=== PATIENT | female | born 1950 | race Caucasian/White ===

== ENCOUNTER 2018-06-23 07:57 | Inpatient (IN) ==
[2018-06-23] MEDS ORDERED: Metoprolol Tartrate 25 MG Tablet PO ONE (08:29)
[2018-06-23] MEDS ORDERED: Chlorhexidine Gluconate 2% 1 Pack (2 Cloths) TOPICAL ONE (08:29)
[2018-06-23] MEDS ORDERED: Sodium Chlor 0.9% Inj 500 ML IV.SIG ONE (09:00)
--- NOTE | 2018-06-23 10:52 | P.HPVS ---
History of Present Illness Chief Complaint: L LE pain, PAD, occluded iliac stents History of Present Illness: 68 yo female with iliac stents placed at OSH now with L ones occluded. Has L thigh pain with ambulation. Presents for fem-fem bypass. no interval change in her health that would preclude OR. - Inpatient Certification If this patient has been admitted as an Inpatient: I certify that the inpatient services were ordered in accordance with Medicare regulations governing the order. This includes certification that hospital inpatient services are reasonable and necessary and in the case of services not specified as inpatient-only under 42 CFR 419.22(n), that they are appropriately provided as inpatient services in accordance to with the 2-midnight benchmark under 43 CFR 412.3(e) Estimated Total Length of Stay (Days): 3 Plans for Post Hospital Care: Home Review of Systems All other systems reviewed negative except as stated in HPI PMFSH - History History Provided By: Patient - Medical History Medical History: Medical History (Last Reviewed 06/23/18 @ 10:50 by Ranjit Penaloza MD) Anxiety COPD (chronic obstructive pulmonary disease) GERD (gastroesophageal reflux disease) Hypertension Murmur PAD (peripheral artery disease) PVD (peripheral vascular disease) Recently quit using tobacco - Surgical History Surgical History: Surgical History (Last Reviewed 06/23/18 @ 10:50 by Ranjit Penaloza MD) History of angioplasty of peripheral vessel History of bilateral oophorectomies History of carpal tunnel surgery of right wrist History of coronary artery stent placement History of partial hysterectomy Hx of appendectomy Hx of tonsillectomy - Tobacco History Second Hand Smoke Exposure: No Tobacco Use In Past 30 Days: No Smoking Status: Former smoker Tobacco Type: Cigarettes - Alcohol History How Often Do You Have a Drink Containing Alcohol: Never - Substance Use History Substance History: No History of Abuse Medications and Allergies Active Medications: Active Medications Lactated Ringer's (Lr 1000 Ml Inj) 1,000 mls @ 30 mls/hr IV.SIG .Q24H YAZ Stop: 06/24/18 08:29 Sodium Chloride (Ns Inj) 500 mls @ 30 mls/hr IV.SIG .Q10H ONE Stop: 06/24/18 01:39 Allergies Allergy/AdvReac Type Severity Reaction Status Date / Time No Known Allergies Allergy Verified 06/23/18 08:46 Home Medications Medication Instructions Recorded Confirmed Type alprazolam 0.25 mg PO TID 06/20/18 06/23/18 History aspirin [Aspirin Low Dose] 81 mg PO DAILY 06/20/18 06/23/18 History esomeprazole magnesium [Nexium] 20 mg PO BID 06/20/18 06/23/18 History fluticasone-vilanterol [Breo 1 inh INHALATION DAILY 06/20/18 06/23/18 History Ellipta] ipratropium-albuterol 3 ml INHALATION Q6-8H PRN 06/20/18 06/23/18 History lisinopril 20 mg PO BID 06/20/18 06/23/18 History prasugrel [Effient] 10 mg PO HS 06/20/18 06/23/18 History rosuvastatin [Crestor] 40 mg PO HS 06/20/18 06/23/18 History trazodone 100 mg PO HS 06/20/18 06/23/18 History varenicline [Chantix] 1 mg PO BID 06/20/18 06/23/18 History Physical Exam Vital Signs / I&O: Vital Signs 06/23/18 08:34 06/23/18 09:48 Temperature 98.3 F Pulse Rate 83 83 Respiratory Rate 16 17 Blood Pressure 151/75 H Pulse Oximetry 95 Intake & Output 06/22/18 06/23/18 06/23/18 18:59 06:59 18:59 Weight 69.5 kg Other: Weight On Admission 69.5 kg Neuro: alert, no distress HEENT: NC/AT Neck: no JVD Heart: reg rate Lungs: clear, occ wheeze Vascular: nonpalpable L femoral pulse Laboratory Results - last 24 hr 06/23/18 08:30 Blood Type A Negative Blood Type Recheck Required Caprini VTE Risk Assessment Caprini VTE Risk Assessment: No/Low Risk (score <= 1) (intraop heparin) Caprini Risk Assessment Model: Point Value = 1 Point Value = 2 Point Value = 3 Point Value = 5 Age 41-60 Minor surgery BMI > 25 kg/m2 Swollen legs Varicose veins or History of unexplained or recurrent spontaneous Oral contraceptives or hormone replacement Sepsis (< 1 month) Serious lung disease, including pneumonia (< 1 month) Abnormal pulmonary function Acute myocardial infarction Congestive heart failure (< 1 month) History of inflammatory bowel disease Medical patient at bed rest Age 61-74 Arthroscopic surgery Major open surgery (> 45 min) Laparoscopic surgery (> 45 min) Malignancy Confined to bed (> 72 hours) Immobilizing plaster cast Central venous access Age >= 75 History of VTE Family history of VTE Factor V Leiden Prothrombin [id number] Lupus anticoagulant Anticardiolipin antibodies Elevated serum homocysteine Heparin-induced thrombocytopenia Other congenital or acquired thrombophilia Stroke (< 1 month) Elective arthroplasty Hip, pelvis, or leg fracture Acute spinal cord injury (< 1 month) Prophylaxis Regimen: Total Risk Factor Score Risk Level Prophylaxis Regimen 0-1 Low Early ambulation 2 Moderate Order ONE of the following: *Sequential Compression Device (SCD) *Heparin 5000 units SQ BID 3-4 Higher Order ONE of the following medications: *Heparin 5000 units SQ TID *Enoxaparin/Lovenox 40 mg SQ daily (WT < 150 kg, CrCl > 30 mL/min) *Enoxaparin/Lovenox 30 mg SQ daily (WT < 150 kg, CrCl > 10-29 mL/min) *Enoxaparin/Lovenox 30 mg SQ BID (WT < 150 kg, CrCl > 30 mL/min) AND/OR *Sequential Compression Device (SCD) 5 or more Highest Order ONE of the following medications: *Heparin 5000 units SQ TID (Preferred with Epidurals) *Enoxaparin/Lovenox 40 mg SQ daily (WT < 150 kg, CrCl > 30 mL/min) *Enoxaparin/Lovenox 30 mg SQ daily (WT < 150 kg, CrCl > 10-29 mL/min) *Enoxaparin/Lovenox 30 mg SQ BID (WT < 150 kg, CrCl > 30 mL/min) AND *Sequential Compression Device (SCD) Assessment and Plan - Assessment (1) PAD (peripheral artery disease) Code(s): I73.9 - Peripheral vascular disease, unspecified Status: Acute - Plan R to L fem-fem bypass Family: [phone]
[2018-06-23] MEDS ORDERED: ceFAZolin 1 GM Premix Inj 1 GM/50 ML PIGGYBACK IV.SIG ONE ×2 (10:57→11:01)
[2018-06-23] MEDS ORDERED: Heparin 10,000 UNITS/10 ML Vial (for IV use) ONE (10:57)
[2018-06-23] MEDS ORDERED: Bupivacaine PF 0.5% Inj 10 ML Vial ONE (10:57)
[2018-06-23] MEDS ORDERED: Thrombin Topical 20,000 UNIT Spray Kit TOPICAL ONE (10:58)
[2018-06-23] MEDS ORDERED: Heparin/NS PF Inj 500 ML ONE (10:58)
[2018-06-23] MEDS ORDERED: Protamine Sulfate Inj 50 MG/5 ML Vial ONE ×2 (11:02→13:11)
[2018-06-23] MEDS ORDERED: Bisacodyl 10 MG Supp RECTAL PRN (13:44)
--- NOTE | 2018-06-23 13:44 | P.OP ---
- Preoperative Diagnosis (1) PAD (peripheral artery disease) - Postoperative Diagnosis (1) PAD (peripheral artery disease) Date of procedure: 06/23/18 Procedure: RIGHT to LEFT fem-fem with 8mm PTFE Implants: 8mm PTFE Anesthesia: GETA Surgeon: Ranjit Penaloza MD [employer] Instructor: Ranjit Swan Estimated blood loss (mL): 75 IV fluids (mL): 1,700 Urine output (mL): 325 Operation and Findings: small arteries, improved perfusion to LEFT foot after fem-fem
[2018-06-23] MEDS ORDERED: *morphine SULFATE 4 MG/ML PERIprocedure ONLY ONE ×3 (14:03→14:32)
[2018-06-23] MEDS ORDERED: fentaNYL Citrate Inj 100 MCG/2 ML Ampul ONE (14:10)
[2018-06-23] MEDS ORDERED: *Meperidine Inj 25 MG/ML Vial PERIprocedural Use ONLY ONE (14:16)
[2018-06-23] MEDS ORDERED: HYDROmorphone PF Inj 1 MG/ML Ampul ONE (14:50)
--- NOTE | 2018-06-23 16:07 | MP ---
cc: Ranjit Penaloza MD DATE OF OPERATION: 06/23/2018 PREOPERATIVE DIAGNOSES: Left lower extremity iliac occlusion, peripheral vascular disease. POSTOPERATIVE DIAGNOSES: Left lower extremity iliac occlusion, peripheral vascular disease. PROCEDURE PERFORMED: Right to left femoral-femoral bypass with 8 mm PTFE. ATTENDING SURGEON: Ranjit Penaloza MD FILTER TENDER JELLY SURGEON: Ranjit Swan. ANESTHESIA: General. INDICATIONS: Ms. Whiteside is a 68-year-old lady with left lower extremity pain and occluded iliac stents placed elsewhere. She was taken to the operating room for an extra-anatomic bypass with fem-fem orientation. Intraoperatively, she was found to have small arteries, but these had nice lumen. DESCRIPTION OF PROCEDURE: Informed consent was obtained from the patient. She was taken to the operating room and placed supine on the operating table. Appropriate timeout was taken to ensure the patient's identity, operative site, and planned procedure. The administration of 2 g of Ancef was initiated prior to skin incision, will be discontinued after single preoperative dose. Everyone in the room agreed, and we proceeded. She was prepped from nipples to her toes. An oblique incision was made in the patient's both groins, carried down through subcutaneous tissue with electrocautery. The common femoral artery was identified from the external iliac artery down to the bifurcation. A tunnel was then created in the subfascial plane by incising the inguinal ligament and passing an aortic clamp through the tunnel, and an 8 mm PTFE was passed through the tunnel, taking caution not to twist it. The patient was systemically heparinized with 7000 units of IV heparin. Proximal and distal control of the right common femoral artery were obtained with profunda clamps, and a longitudinal arteriotomy was made with an 11-blade, extended with Harish scissors. The PTFE was spatulated and sewn end-to-side with a running 5-0 Prolene suture. At the completion, it was flushed and noted to be hemostatic. A Cintia soft gel was placed on the graft. The proximal and distal control of the left common femoral artery was obtained with profunda clamps and a longitudinal arteriotomy was made with an 11 blade, extended with Harish scissors. The graft was cut to an appropriate length, spatulated, and sewn end-to-side with running 5-0 Prolene suture. At completion, it was flushed and noted to be hemostatic. There was an excellent Doppler signal in the left SFA and profunda and an excellent signal in both feet. The heparin was reversed with protamine. The wounds were infiltrated with Marcaine, irrigated, and closed with 2-0 Polysorb in 2 layers, 3-0 Polysorb, and 4-0 Monocryl. The sponge and needle counts were correct at the end of the case. I was present, scrubbed, and performed the entire procedure. Ranjit Penaloza MD RJF/rm/ll , 02:46 PM , 02:51 PM MTDDolores
[2018-06-23] MEDS: Morphine Inj 4 MG/ML Vial IV.PUSH PRN (19:12)
[2018-06-23] MEDS: traZODone 100 MG Tablet PO SCH (20:26)
[2018-06-23] MEDS: Pantoprazole Sodium 20 MG DR Tablet PO SCH (20:27)
[2018-06-23] MEDS: Senna/Docusate Sodium 8.6/50 MG Tablet PO SCH (20:27)
[2018-06-23] MEDS: Lisinopril 20 MG Tablet PO SCH (20:27)
[2018-06-23] MEDS: ALPRAZolam 0.25 MG Tablet PO SCH (20:27)
[2018-06-23] MEDS: Varenicline 1 MG Tablet PO SCH (20:32)
[2018-06-24] MEDS: Morphine Inj 4 MG/ML Vial IV.PUSH PRN ×4 (05:00→15:33)
[2018-06-24 06:09] LABS: Hematocrit 34.6 % (35.0-46.0); Hemoglobin 11.4 gm/dL (11.6-15.3); Mean Corpuscular HGB Conc 32.9 % (32.0-36.0); Mean Corpuscular Hemoglobin 30.3 pg (27.0-34.0); Mean Corpuscular Volume 92.1 fL (80.0-100.0); Mean Platelet Volume 8.8 fL (7.0-11.0); Platelet Count 207 th/mm3 (150-450); Red Blood Count 3.75 mil/mm3 (4.00-5.30); Red Cell Distribution Width 14.3 % (11.6-17.2); White Blood Count 11.2 th/mm3 (4.0-11.0)
[2018-06-24 06:38] LABS: Calcium 8.1 mg/dL (8.5-10.1); Carbon Dioxide 27.1 meq/L (21.0-32.0); Potassium 4.1 meq/L (3.5-5.1)
--- NOTE | 2018-06-24 07:48 | P.PNVS ---
Subjective Post Op Day #: 1 Procedure: R to L fem-fem bypass Subjective/Hospital Course: c/o groin pain but otherwise ok. OOB TC and Hall just came out. Rodger po. feet ok Objective Vital Signs / I&O: Vital Signs 06/23/18 08:34 06/23/18 09:48 06/23/18 13:55 Temperature 98.3 F 97.4 F L Pulse Rate 83 83 91 H Respiratory Rate 16 17 20 Blood Pressure 151/75 H 154/68 H Pulse Oximetry 95 93 L 06/23/18 14:10 06/23/18 14:25 06/23/18 14:42 Temperature Pulse Rate 88 82 76 Respiratory Rate 20 16 20 Blood Pressure 149/68 H 118/57 L 104/54 L Pulse Oximetry 95 95 93 L 06/23/18 14:59 06/23/18 15:15 06/23/18 15:34 Temperature 98.0 F Pulse Rate 74 75 72 Respiratory Rate 20 22 18 Blood Pressure 100/51 L 114/49 L 106/55 L Pulse Oximetry 94 L 96 96 06/23/18 16:00 06/23/18 17:00 06/23/18 18:00 Temperature 98.0 F Pulse Rate 80 84 84 Respiratory Rate 18 Blood Pressure 127/59 L Pulse Oximetry 95 06/23/18 19:00 06/23/18 20:00 06/23/18 21:00 Temperature 98.5 F Pulse Rate 83 81 81 Respiratory Rate 16 Blood Pressure 125/74 Pulse Oximetry 95 06/23/18 22:00 06/23/18 22:23 06/23/18 23:00 Temperature 98.6 F Pulse Rate 78 80 Respiratory Rate 16 Blood Pressure 117/56 L Pulse Oximetry 95 98 06/24/18 00:00 06/24/18 01:00 06/24/18 02:00 Temperature Pulse Rate 71 71 67 Respiratory Rate Blood Pressure Pulse Oximetry 06/24/18 03:00 06/24/18 04:00 06/24/18 05:00 Temperature 98.2 F Pulse Rate 67 71 75 Respiratory Rate 16 Blood Pressure 98/54 L Pulse Oximetry 98 06/24/18 06:00 Temperature Pulse Rate 79 Respiratory Rate Blood Pressure Pulse Oximetry Intake & Output 06/23/18 06/24/18 06/24/18 18:59 06:59 18:59 Intake Total 3000 / 3000 960 / 960 Output Total 800 / 800 1000 / 1000 Balance 2200 / 2200 -40 / -40 Weight 69.5 kg 70.5 kg Intake: IV 600 / 600 Heparin/NS PF Inj 500 ML @ 0 500 / 500 mls/hr .ROUTE .STK-MED ONE Rx#: [id number] Ancef 1 GM Premix Inj 1 gm In 100 / 100 50 ml @ 0 mls/hr IV.SIG .STK- MED ONE Rx#:[id number] Oral 700 / 700 960 / 960 Anesthesia Amount 1700 / 1700 Output: Estimated Blood Loss 75 / 75 Urine Amount (Catheter) 725 / 725 1000 / 1000 Indwelling Urethral Catheter 725 / 725 1000 / 1000 Other: # Incontinent Bowel Movements 0 Weight On Admission 69.5 kg Exam: B groin prevena in place groins soft palpable R DP and L PT Laboratory Results - last 24 hr 06/23/18 06/24/18 06/24/18 08:30 05:02 05:02 WBC 11.2 H RBC 3.75 L Hgb 11.4 L Hct 34.6 L MCV 92.1 MCH 30.3 MCHC 32.9 RDW 14.3 Plt Count 207 MPV 8.8 Sodium 139 Potassium 4.1 Chloride 105 Carbon Dioxide 27.1 Anion Gap 7 BUN 15 Creatinine 0.92 Estimated GFR 61 L Random Glucose 107 H Calcium 8.1 L Blood Type A Negative Blood Type Recheck Required Antibody Screen Negative Assessment and Plan - Assessment (1) PAD (peripheral artery disease) Code(s): I73.9 - Peripheral vascular disease, unspecified Status: Acute - Plan POD#1 s/p fem-fem bypass, palpable pulses 1. check to see if voids by 1300 2. OOB/PT 3. Reg diet and meds; will start Effient tomorrow Discharge Planning: likely 1-2 days pending mobility
[2018-06-24] MEDS: Pantoprazole Sodium 20 MG DR Tablet PO SCH ×2 (09:45→21:04)
[2018-06-24] MEDS: Varenicline 1 MG Tablet PO SCH ×2 (09:45→21:04)
[2018-06-24] MEDS: Lisinopril 20 MG Tablet PO SCH ×2 (09:45→21:04)
[2018-06-24] MEDS: Senna/Docusate Sodium 8.6/50 MG Tablet PO SCH ×2 (09:45→21:03)
[2018-06-24] MEDS: ALPRAZolam 0.25 MG Tablet PO SCH ×3 (09:45→19:03)
[2018-06-24] MEDS: Enoxaparin Inj 40 MG/0.4 ML Syringe SQ SCH (13:06)
[2018-06-24] MEDS: traZODone 100 MG Tablet PO SCH (21:03)
[2018-06-25] MEDS: Morphine Inj 4 MG/ML Vial IV.PUSH PRN ×2 (05:48→08:05)
[2018-06-25] MEDS: Varenicline 1 MG Tablet PO SCH ×2 (08:05→22:26)
[2018-06-25] MEDS: ALPRAZolam 0.25 MG Tablet PO SCH ×3 (08:05→17:35)
[2018-06-25] MEDS: Senna/Docusate Sodium 8.6/50 MG Tablet PO SCH ×2 (08:05→22:25)
[2018-06-25] MEDS: Lisinopril 20 MG Tablet PO SCH (08:05)
[2018-06-25] MEDS: Pantoprazole Sodium 20 MG DR Tablet PO SCH ×2 (08:05→22:26)
--- NOTE | 2018-06-25 08:09 | P.PNVS ---
Subjective Post Op Day #: 2 Procedure: R to L fem-fem bypass Subjective/Hospital Course: c/o groin pain ambulated yest voiding on her own feet ok Objective Vital Signs / I&O: Vital Signs 06/24/18 11:00 06/24/18 12:00 06/24/18 12:36 Temperature 97.4 F L Pulse Rate 83 76 Respiratory Rate 18 16 Blood Pressure 134/73 Pulse Oximetry 92 L 06/24/18 13:00 06/24/18 14:00 06/24/18 14:47 Temperature Pulse Rate 82 84 Respiratory Rate 16 Blood Pressure Pulse Oximetry 06/24/18 15:00 06/24/18 16:00 06/24/18 17:00 Temperature 98.4 F Pulse Rate 80 85 82 Respiratory Rate 14 Blood Pressure 100/51 L Pulse Oximetry 91 L 06/24/18 17:55 06/24/18 19:00 06/24/18 20:00 Temperature 98.9 F Pulse Rate 84 86 80 Respiratory Rate 18 Blood Pressure 128/57 L Pulse Oximetry 94 L 06/24/18 21:00 06/24/18 22:00 06/24/18 23:00 Temperature 100.2 F H Pulse Rate 78 80 81 Respiratory Rate 18 Blood Pressure 103/51 L Pulse Oximetry 92 L 06/25/18 00:00 06/25/18 01:00 06/25/18 02:00 Temperature Pulse Rate 76 79 77 Respiratory Rate Blood Pressure Pulse Oximetry 06/25/18 03:00 06/25/18 04:00 06/25/18 05:00 Temperature 99.6 F Pulse Rate 82 79 80 Respiratory Rate 18 Blood Pressure 98/53 L Pulse Oximetry 93 L 06/25/18 06:00 06/25/18 07:00 Temperature Pulse Rate 82 83 Respiratory Rate Blood Pressure Pulse Oximetry Intake & Output 06/24/18 06/25/18 06/25/18 18:59 06:59 18:59 Intake Total 480 / 480 240 / 240 Output Total 750 / 750 200 / 200 Balance -270 / -270 40 / 40 Weight 71 kg Intake: Oral 480 / 480 240 / 240 Output: Urine 750 / 750 200 / 200 Exam: sitting in chair, mild distress due to pain feet warm palp pulses Incisions: Prevena in place, minimal groin edema Assessment and Plan - Assessment (1) PAD (peripheral artery disease) Code(s): I73.9 - Peripheral vascular disease, unspecified Status: Acute - Plan POD#2 s/p fem-fem bypass, palpable pulses 1. reg diet and meds including antiplatelet 2. OOB/PT 3. D/C when more mobile Discharge Planning: likely 1-2 days pending mobility
[2018-06-25] MEDS: Enoxaparin Inj 40 MG/0.4 ML Syringe SQ SCH (12:44)
[2018-06-25] MEDS: oxyCODONE/Acetaminophen 10/325 Tablet PO PRN ×2 (16:20→22:24)
[2018-06-25] MEDS: traZODone 100 MG Tablet PO SCH (22:26)
[2018-06-26] MEDS: Lisinopril 20 MG Tablet PO SCH ×2 (04:19→08:39)
[2018-06-26] MEDS: oxyCODONE/Acetaminophen 10/325 Tablet PO PRN ×2 (04:40→08:36)
[2018-06-26 06:45] VITALS: RESP 18
[2018-06-26] MEDS: Varenicline 1 MG Tablet PO SCH (08:37)
[2018-06-26] MEDS: Pantoprazole Sodium 20 MG DR Tablet PO SCH (08:38)
[2018-06-26] MEDS: ALPRAZolam 0.25 MG Tablet PO SCH ×2 (08:39→13:17)
[2018-06-26] MEDS: Senna/Docusate Sodium 8.6/50 MG Tablet PO SCH (08:39)
--- NOTE | 2018-06-26 09:52 | P.PNVS ---
Subjective Post Op Day #: 3 Procedure: R to L fem-fem bypass Subjective/Hospital Course: Pt sitting in bed applying make up appearing in good spirits Pt reported she has been ambulating Pt c/o mild bilateral groin pain Pt reported improved L LE discomfort Objective Vital Signs / I&O: Vital Signs 06/25/18 10:00 06/25/18 10:01 06/25/18 11:00 Temperature 98.2 F Pulse Rate 77 86 Respiratory Rate 18 18 22 Blood Pressure 123/59 L Pulse Oximetry 92 L 06/25/18 12:00 06/25/18 13:00 06/25/18 14:00 Temperature Pulse Rate 83 90 80 Respiratory Rate Blood Pressure Pulse Oximetry 06/25/18 15:00 06/25/18 16:00 06/25/18 17:00 Temperature 98 F Pulse Rate 83 81 88 Respiratory Rate 22 Blood Pressure 113/60 Pulse Oximetry 96 06/25/18 18:00 06/25/18 19:00 06/25/18 20:00 Temperature 98.7 F Pulse Rate 81 84 76 Respiratory Rate 16 Blood Pressure 111/56 L Pulse Oximetry 94 L 06/25/18 21:00 06/25/18 22:00 06/25/18 22:23 Temperature Pulse Rate 76 78 81 Respiratory Rate 16 Blood Pressure Pulse Oximetry 06/25/18 22:55 06/25/18 23:00 06/26/18 00:00 Temperature 98.7 F Pulse Rate 82 84 Respiratory Rate 16 18 Blood Pressure 102/54 L Pulse Oximetry 90 L 06/26/18 01:00 06/26/18 02:00 06/26/18 03:00 Temperature 98.6 F Pulse Rate 86 88 88 Respiratory Rate 18 Blood Pressure 95/71 L Pulse Oximetry 92 L 06/26/18 04:00 06/26/18 05:00 06/26/18 06:00 Temperature Pulse Rate 94 H 90 90 Respiratory Rate Blood Pressure Pulse Oximetry 06/26/18 07:00 Temperature Pulse Rate 72 Respiratory Rate Blood Pressure Pulse Oximetry Intake & Output 06/25/18 06/26/18 06/26/18 18:59 06:59 18:59 Intake Total 480 / 480 240 / 240 Output Total 700 / 700 330 / 330 Balance -220 / -220 -90 / -90 Weight 70.5 kg Intake: Oral 480 / 480 240 / 240 Output: Urine 700 / 700 330 / 330 Other: # Bowel Movements 0 Exam: Bilateral Groin wound vacs intact w/o Swelling or Hematoma B LE warm/motor intact/ palpable 1+ Dorsalis Pedis pulses Assessment and Plan - Assessment (1) PAD (peripheral artery disease) Code(s): I73.9 - Peripheral vascular disease, unspecified Status: Acute - Plan 68/F with a PMH of L LE pain, PAD, occluded iliac stents Pt s/p fem-fem bypass, palpable pulses POD 3 doing well w/ improved ambulation and discomfort Pt w/o claudication or rest pain Plan Pt clear for D/C today w/ bilateral groin prevena wound vacs Will remove wound vacs in our out pt clinic Walker ordered Will arrange out pt f/u Shirley Singh NP [facility]/[place] [phone] Discharge Planning: Today
--- NOTE | 2018-06-26 10:27 | P.DS ---
Discharge Summary - Admission Date 06/23/18 07:57 - Admission Diagnosis (1) PAD (peripheral artery disease) - Discharge Date 06/26/18 - Discharge Diagnosis (1) PAD (peripheral artery disease) Status: Acute - Summary Brief History from admission: 68 yo female with iliac stents placed at OSH now with L ones occluded. Has L thigh pain with ambulation. Presents for fem-fem bypass. no interval change in her health that would preclude OR. Procedure: R to L fem-fem bypass Significant Findings: Bilateral Groin wound vacs intact w/o Swelling or Hematoma B LE warm/motor intact/ palpable 1+ Dorsalis Pedis pulses Hospital Course: 68/F female w/ a hx of L LE pain PAD and occluded iliac stents Pt takes a daily statin/anticoagulation/ does not smoke Pt presents for a femoral to femoral bypass for revascularization Pt s/p RIGHT to LEFT fem-fem with 8mm PTFE Pt doing well post operatively w/ expected complaints of B groin incisional discomfort Pain controlled and reports improved ambulation Pt clear for d/c (POD 3) w/ B groin wound vacs Wound vacs to be removed in our out pt clinic Walker ordered E- [place] reviewed- Rx out pt post Surgical pain medication of 3D - Discharge Instructions Any questions or concerns: Call [facility] [phone] Discharge Plan - Discharge Disposition Patient Disposition: Discharge Home - Discharge Condition Condition: Good - Discharge Order Discharge Orders: Discharge Order (Routine); Ordered 06/26/18 Ordered By: Shirley Singh - Physicians Team Primary Care Provider: Primary Care Barrera,Lauren Attending Provider: Ranjit Penaloza Other Providers: Lady Narayanan - Rxs /Orders / Referrals /Forms Prescriptions: New oxycodone-acetaminophen [Percocet] 10-325 mg Tablet 1 tab PO Q4H PRN (Reason: pain) Qty: 20 RF: 0 Continue alprazolam 0.25 mg Tablet 0.25 mg PO TID aspirin [Aspirin Low Dose] 81 mg Tablet,Delayed Release (Dr/Ec) 81 mg PO DAILY esomeprazole magnesium [Nexium] 20 mg Capsule,Delayed Release(Dr/Ec) 20 mg PO BID fluticasone-vilanterol [Breo Ellipta] 100-25 mcg/dose Blister With Device 1 inh INHALATION DAILY ipratropium-albuterol 0.5 mg-3 mg(2.5 mg base)/3 mL Solution For Nebulization 3 ml INHALATION Q6-8H PRN (Reason: copd) lisinopril 20 mg Tablet 20 mg PO BID prasugrel [Effient] 10 mg Tablet 10 mg PO HS rosuvastatin [Crestor] 40 mg Tablet 40 mg PO HS trazodone 100 mg Tablet 100 mg PO HS varenicline [Chantix] 1 mg Tablet 1 mg PO BID Referrals: Primary Care Lauren Rust [Primary Care Provider] - See Instructions Ranjit Penaloza MD [Physician] - See Instructions (Follow up in our out pt clinic on 07/01/18 at 11:30 for your wound vac removal) - Discharge Instructions Patient Printed Instructions: Peripheral Vascular Disease (GEN) - Post Discharge Care Plan Care Plan Goals: Discharge Care Plan Goals After Vascular Surgery Contact: Please call [phone] if you have any problems or have questions regarding your hospitalization. Directions to Meet Your Goals: 1. Diet: * You may resume a regular diet as you were eating at home before your admission. 2. Activity: * Increase your activity level gradually. * Keep surgical extremities elevated when at rest. This will help limit the swelling, bruising and discomfort normally present after surgery. * Walking is a good form of light exercise. Go for a walk at least 3 times per day. * No heavy lifting (lifting over 10 pounds) for at least 4 weeks from surgery. * Check with your surgeon to ensure when you are cleared for heavy lifting and full-intensity exercising. * Your strength will gradually improve. * No driving or operating motorized vehicles while on prescription pain medications. * No swimming until wounds fully healed. * Return to work when cleared by MD/PA/DRILL DOCTOR. 3. Bathing: Shower daily. * Gently let soap and water run over your incision and pat dry. Do not scrub the incision/wound. * Don't soak in a bath or submerge your incision in water until your incision is healed and evaluated by your physician at follow-up (usually two weeks). 4. Wound Care: INCISION SITE CARE INSTRUCTIONS: * You may leave your incision open to air. * Keep your incision clean and dry, unless showering. See above. * Moisture near the incision will cause the wound to open. * No lotions, creams, ointments, or powders on incisions until they are well- healed. * If you have glue over the incision(s), allow it to fall off naturally in 1-3 weeks * If present, pernell/sutures will be removed 2-3 weeks after surgery during your follow-up clinic visit. * If present, change dressing/bandage when soaked/soiled as needed. * Observe wound daily, checking for signs and symptoms of infection including: foul odor, drainage from the incision, increased redness, increased pain at incision, or increased swelling. 5. Pain Control: Expect post-operative pain for 1-4 weeks after surgery. Your pain will improve gradually. * You may have been provided with a prescription for pain medication. Please take as directed, and be aware of side effects such as drowsiness, constipation and mild stomach discomfort. Pain pills on an empty stomach can cause nausea , so eat a small amount of food, such as crackers, when taking these pills. * Take [id number]-[id number] stool softeners (Colace or Senna) with your prescribed pain medication. * Acetaminophen (500mg every 6 hours) or Ibuprofen (400mg every 6 hours) may be used in conjunction with narcotics to relieve pain. DO NOT take more than 4 grams (4000mg) of Tylenol in one day, as this can harm your liver. DO NOT take ibuprofen IF: you have an allergy to non-steroidal anti-inflammatory medications, you are taking Coumadin, you have been told you have kidney problems, or you have a history of gastrointestinal bleeding or ulcers. DO NOT take more than 3.2 grams (3200mg) of ibuprofen in one day. * You may also find relief from using heat packs or pads or ice packs. 6. Bowel Regimen for Constipation: * People who undergo surgery are likely to develop post-operative constipation. Exposure to narcotics and changes in diet, fluid intake, and physical activity are known contributors to constipation. We recommend routine stool softeners and/ or laxatives after surgery for most patients. Start by taking one medication. You can increase as directed to relieve constipation. Stop taking these medications if you develop diarrhea. These medications are available over-the- counter and do not require a prescription: * Colace is a stool softener. We recommend starting at 100mg orally twice per day as needed for soft stools and increase to a maximum of 200mg twice daily as needed. * Senna is a laxative that works by keeping water in the intestine to help stool move along the intestinal tract. Take 1 tablet daily as needed for soft stool and increase to a maximum of 2 tablets twice daily as needed. Take Senna with two full glasses of water each time. * Miralax, Dulcolax and Milk of Magnesia are other yjug-cdv-ypyplar laxatives that may be used as needed for post-operative constipation. * Drink 6-8 glasses of water per day. * Consume 15-30g of fiber per day: * Metamucil powder, 1-2 tablespoons 1-2 times/day OR Benefiber powder, 2 tablespoons 4 times/day. * Avoid straining. 7. Follow-Up: Do Not miss your follow-up appointment. Keep up with all your appointments and yearly check ups If you have any of the following symptoms please call [phone] immediately: Excessive swelling of the affected extremity Sudden onset of severe or unusual pain in the affected extremity Pain that gets worse or is not relieved by medication Warmth, redness, or swelling in the skin around the wound Foul drainage from incision Extensive bruising or discoloration Wound that opens up or pulls apart Fever above 101.5F or shaking chills Nausea or vomiting Severe diarrhea or severe constipation Dizziness or fainting Chest pain, shortness of breath, or increased work of breathing Weight gain >10 lbs over 3-4 days Inability to urinate for more than 6 hours Cloudy or foul smelling urine Urge to urinate more often than usual Symptoms to Report to Your Doctor: Temperature 101F or higher Pain uncontrolled by medication Drainage or foul odor from incision Extensive bruising or discoloration Chest pain Shortness of breath Nausea, vomiting or dizziness Call 911: Call 911 right away if you have: Sudden onset of chest pain that is not relieved by medications Shortness of breath
[2018-06-26 13:10] VITALS: BP 104/62; PULSE 74; TEMP 98.2; O2SAT 92
[2018-06-26] MEDS: Enoxaparin Inj 40 MG/0.4 ML Syringe SQ SCH (13:17)
== END 2018-06-26 15:05 | disposition home or self-care (01) | DRG 253 ==
LOC: HSDI 07:57 → HCPC 15:46
PROVIDERS: ADMIT Surgery; ATTEND Surgery
CPT/HCPCS: 80048; 85027; 86850; 86900; 86901; 94664; 97110; 97162; 97530; C1768; J0131; J0690; J1170; J1644; J1650; J2175; J2270; J2720; J3010; J3370; Q4145